=== PATIENT | male | born 1955 | race Caucasian/White ===

== ENCOUNTER 2016-05-13 14:00 | Outpatient (RCR) | payer BC ==
[~2016-05-13 14:00] MED LIST: ACTOS 15MG TAB15 MG PO; B-12 500 MCG PO; CAPOTEN 25MG25 MG PO; CARDIZEM CD 18180 MG PO; CARDIZEM120 MG PO; ENBREL50 MG/ML SC; FLUOXETINE; GABAPENTIN; GAS RELIEF180 MG PO; GLUCOPHAGE; GLUCOPHAGE1000 MG PO; GLUCOSAMINE & C1 CA1 PO; HCTZ; HCTZ 25MG TAB25 MG PO; HUMALOG100 U/ML SC; HYDROCORTISO28.35 GM TP; HYTRIN 1MG C1 MG/CAP PO; INSULIN R (N100 U/ML IV; JANUVIA50 MG PO; LANTIS; LANTUS100 U/ML SC; LOPID 600M600 MG/TAB PO; MONODOX100 PO; NATURAL POTASS595 MG PO; NEURONTIN600 MG/TAB PO; NORCO 325 MG-7.1 TAB PO; NOVALOG; NOVOLOG 100U100 U/M1 SQ; OMEGA-3 FISH1000 MG PO; PRAVACHOL 20MG20 MG PO; PRIL40 PO; PRILOSEC; PROAIR RES117 MCG/Ac IH; PROZAC40 MG PO; THEOPHYLLINE; ULTRAM 50MG TAB50 MG PO; UNIPHYL600 MG PO; VITAMIN D 400400 IU PO; VYVANSE50 MG PO; ZETIA 10MG TAB10 MG PO; ZETIA10 MG PO; ZOFRAN 4MG T4 MG/TAB PO; [UNRECOGNIZED DRUG - OTHER]; [UNRECOGNIZED DRUG - OTHER]
== END 2016-05-22 10:31 | disposition still patient (30) ==
LOC: WSOT 14:00
DX: Z47.89 Encounter for other orthopedic aftercare (principal); M65.332 Trigger finger, left middle finger

== ENCOUNTER → 2016-08-25 | Outpatient (CLI) | payer OTHER | LOC: MHCPAIN 11:58 | DX: G89.29 Other chronic pain (principal); M47.817 Spondylosis without myelopathy or radiculopathy, lumbosacral region; M54.16 Radiculopathy, lumbar region | CPT/HCPCS: G0463 ==

== ENCOUNTER → 2016-09-04 | Outpatient (CLI) | payer OTHER | LOC: MHCPAIN 07:47 | DX: M47.817 Spondylosis without myelopathy or radiculopathy, lumbosacral region (principal) | CPT/HCPCS: A9585; J1100 ==

== ENCOUNTER → 2016-10-03 | Outpatient (CLI) | payer OTHER | LOC: MHCPAIN 09:32 | DX: G89.29 Other chronic pain (principal); M47.817 Spondylosis without myelopathy or radiculopathy, lumbosacral region; M54.16 Radiculopathy, lumbar region | CPT/HCPCS: G0463 ==

== ENCOUNTER → 2016-10-09 | Outpatient (CLI) | payer OTHER | LOC: MHCPAIN 11:40 | DX: M47.27 Other spondylosis with radiculopathy, lumbosacral region (principal); M51.17 Intervertebral disc disorders with radiculopathy, lumbosacral region | CPT/HCPCS: A9585; J1100 ==

== ENCOUNTER → 2016-12-08 | Outpatient (CLI) | payer OTHER | LOC: MHCPAIN 10:34 | DX: G89.29 Other chronic pain (principal); M47.27 Other spondylosis with radiculopathy, lumbosacral region; M53.3 Sacrococcygeal disorders, not elsewhere classified | CPT/HCPCS: G0463 ==

== ENCOUNTER → 2017-03-17 | Outpatient (CLI) | payer OTHER | LOC: COL.RAD 17:32 | DX: K76.0 Fatty (change of) liver, not elsewhere classified (principal); D72.829 Elevated white blood cell count, unspecified ==

== ENCOUNTER 2017-09-09 11:21 | Emergency (ER) | payer OTHER, BC ==
[~2017-09-09] VITALS: Ht 182.9 cm; Wt 118.2 kg
[2017-09-09 11:30] VITALS: BP 138/79; TEMP 98
[2017-09-09 12:40] VITALS: PULSE 88
== END 2017-09-09 12:40 | disposition home or self-care (01) ==
LOC: COL.ER 11:21
DX: S61.211A Laceration without foreign body of left index finger without damage to nail, initial encounter (principal); Z79.84 Long term (current) use of oral hypoglycemic drugs; Z23 Encounter for immunization; Z79.4 Long term (current) use of insulin; W26.0XXA Contact with knife, initial encounter

== ENCOUNTER 2017-09-21 07:15 | Emergency (ER) | payer OTHER, BC ==
[2017-09-21 07:21] VITALS: BP 142/70; PULSE 90; TEMP 98.1
== END 2017-09-21 07:23 | disposition home or self-care (01) ==
LOC: COL.ER 07:15
DX: Z48.02 Encounter for removal of sutures (principal)

== ENCOUNTER 2019-01-01 16:19 | Emergency (ER) | payer OTHER, BC ==
[~2019-01-01] VITALS: Ht 182.9 cm; Wt 122.7 kg
[2019-01-01 16:22] VITALS: BP 143/82; TEMP 97
[2019-01-01 18:53] VITALS: PULSE 84
== END 2019-01-01 18:53 | disposition home or self-care (01) ==
LOC: COL.ER 16:19
DX: S06.0X9A Concussion with loss of consciousness of unspecified duration, initial encounter (principal); S00.93XA Contusion of unspecified part of head, initial encounter; E11.9 Type 2 diabetes mellitus without complications; I10 Essential (primary) hypertension; F32.9 Major depressive disorder, single episode, unspecified; Z79.4 Long term (current) use of insulin; W11.XXXA Fall on and from ladder, initial encounter; Y92.009 Unspecified place in unspecified non-institutional (private) residence as the place of occurrence of the external cause

== ENCOUNTER 2019-01-27 06:20 | Day surgery (SDC) | payer BC ==
[~2019-01-27] VITALS: Ht 182.9 cm; Wt 121.9 kg
[2019-01-27 07:08] VITALS: BP 157/88; PULSE 78; TEMP 97.2
--- NOTE | 2019-01-27 07:11 | NUR ---
TO [facility] AT 0630 CALL LIGHT IN REACH AT BEDSIDE
[2019-01-27] MEDS ORDERED: BASAGLAR K100 UNIT/1 SQ (07:18)
[2019-01-27] MEDS ORDERED: CAPOTEN 50MG50 MG PO (07:18)
[2019-01-27] MEDS ORDERED: VOLTAREN GEL 1%1 TU TP (07:21)
[2019-01-27] MEDS ORDERED: CARDIZEM CD 18180 MG PO (07:22)
[2019-01-27] MEDS ORDERED: ERY-TAB250 MG PO (07:23)
[2019-01-27] MEDS ORDERED: PROZAC 20MG20 MG PO (07:25)
[2019-01-27] MEDS ORDERED: JANUVIA50 MG PO (07:28)
[2019-01-27] MEDS ORDERED: LANTUS100 U/ML SQ (07:31)
[2019-01-27] MEDS ORDERED: K-DUR20 MEQ PO (07:34)
[2019-01-27] MEDS ORDERED: KERALYT TOP (07:37)
[2019-01-27] MEDS ORDERED: CRESTOR 10MG10 MG PO (07:40)
[2019-01-27] MEDS ORDERED: TRIAMCINOLONE A15 GM TP (07:40)
[2019-01-27 08:40] VITALS: BP 147/85; PULSE 82; TEMP 97.3
--- NOTE | 2019-01-27 08:40 | NUR ---
Pt arrived from colonoscopy procedure with Endo RN via cart. Pt ambulated to chair with touch assist from Endo RN and this RN. Pt drowsy but oriented and appropriate. Report received from JAVIER Poole. Reviewed with pt and spouse (at bedside) the goals for today before discharge including drinking and/or eating, feeling awake and comfortable enough for discharge, and reviewing dischage information. Pt and spouse agree. Apple juice brought per pt's reqest. Call light within reach, VSS, and pt denies c/o n/v. Pt appears to have some pallor, however, BP stable and pt denies dizziness at this time. Will continue to monitor and recheck.
[2019-01-27 08:55] VITALS: BP 143/82; PULSE 74
--- NOTE | 2019-01-27 08:55 | NUR ---
Pt successfully drank all of apple juice and requested more as well as pudding. Pt denies and n/v or pain. VSS. Pt still has some pallor in face but mucus membranes are pink and cap refill less than 3 seconds. reports that pt is usually pale at baseline. Pt denies dizziness and is perking up and less drowsy. Apple juice and pudding brought to pt's bedside.
[2019-01-27 09:10] VITALS: BP 147/93; PULSE 74
--- NOTE | 2019-01-27 09:10 | NUR ---
Pt states that he is ready to go home, and he meets criteria for discharge. Reviewed discharge information as well as education packet with pt and spouse. They had no further concerns/questions. VSS
== END 2019-01-27 09:18 | disposition home or self-care (01) ==
LOC: SDCO 06:20
DX: Z12.11 Encounter for screening for malignant neoplasm of colon (principal); E11.9 Type 2 diabetes mellitus without complications; I10 Essential (primary) hypertension; F32.9 Major depressive disorder, single episode, unspecified; M19.90 Unspecified osteoarthritis, unspecified site; F98.8 Other specified behavioral and emotional disorders with onset usually occurring in childhood and adolescence; G47.33 Obstructive sleep apnea (adult) (pediatric); K21.9 Gastro-esophageal reflux disease without esophagitis; J45.909 Unspecified asthma, uncomplicated; Z85.72 Personal history of non-Hodgkin lymphomas; Z85.07 Personal history of malignant neoplasm of pancreas; Z87.891 Personal history of nicotine dependence; Z88.6 Allergy status to analgesic agent; Z91.041 Radiographic dye allergy status; Z88.8 Allergy status to other drugs, medicaments and biological substances; Z90.49 Acquired absence of other specified parts of digestive tract; Z98.52 Vasectomy status
CPT/HCPCS: J2704; J7030

== ENCOUNTER 2021-06-09 09:24 | Emergency (ER) | payer OTHER, MEDICARE ==
[~2021-06-09] VITALS: Ht 182.9 cm; Wt 120.5 kg
[~2021-06-09 09:24] MED LIST changes: +BASAGLAR K100 UNIT/1 SQ; +CAPOTEN 50MG50 MG PO; +CRESTOR 10MG10 MG PO; +ERY-TAB250 MG PO; +K-DUR20 MEQ PO; +KERALYT TOP; +LANTUS100 U/ML SQ; +PROZAC 20MG20 MG PO; +TRIAMCINOLONE A15 GM TP; +VOLTAREN GEL 1%1 TU TP
[2021-06-09] MEDS ORDERED: CEPHALEXIN500 M1 PO (11:07)
[2021-06-09 11:16] VITALS: BP 122/73; PULSE 80; TEMP 98.7
== END 2021-06-09 11:16 | disposition home or self-care (01) ==
LOC: COL.ER 09:24
DX: S09.90XA Unspecified injury of head, initial encounter (principal); S01.111A Laceration without foreign body of right eyelid and periocular area, initial encounter; M25.531 Pain in right wrist; E11.9 Type 2 diabetes mellitus without complications; Z87.891 Personal history of nicotine dependence; Z79.899 Other long term (current) drug therapy; W01.198A Fall on same level from slipping, tripping and stumbling with subsequent striking against other object, initial encounter; Y93.K1 Activity, walking an animal

== ENCOUNTER → 2021-06-16 | Outpatient (CLI) | payer OTHER, MEDICARE ==
[~2021-06-16] MED LIST changes: +CEPHALEXIN500 M1 PO
[2021-06-16 11:35] VITALS: BP 125/74; PULSE 82; TEMP 97.8
== END ==
LOC: COL.ER 11:22
DX: Z48.02 Encounter for removal of sutures (principal)

== ENCOUNTER → 2021-07-02 | Outpatient (CLI) | payer MEDICARE | LOC: COL.VAS 13:57 | DX: I35.0 Nonrheumatic aortic (valve) stenosis (principal); I35.1 Nonrheumatic aortic (valve) insufficiency; I51.7 Cardiomegaly ==

== ENCOUNTER → 2023-04-29 | Outpatient (CLI) | payer OTHER ==
[~2023-04-29] MED LIST changes: +ZOFRAN ODT4 MG PO
== END ==
LOC: MHCPAIN 15:47
DX: M47.896 Other spondylosis, lumbar region (principal); M54.16 Radiculopathy, lumbar region; M48.062 Spinal stenosis, lumbar region with neurogenic claudication; M41.86 Other forms of scoliosis, lumbar region
CPT/HCPCS: G0463

== ENCOUNTER → 2023-05-04 | Outpatient (CLI) | payer OTHER ==
[~2023-05-04] MED LIST changes: +Gadoterate 15 ML VIAL IV ONE; +Iohexol 300 - 10 ML VIAL ONE; +Lidocaine PF 2% (20 MG/ML) 2 ML VIAL ONE
== END ==
LOC: MHCPAIN 14:34
DX: M47.816 Spondylosis without myelopathy or radiculopathy, lumbar region (principal); M48.062 Spinal stenosis, lumbar region with neurogenic claudication
CPT/HCPCS: A9575; J1100; Q9967

== ENCOUNTER → 2023-05-19 | Outpatient (CLI) | payer OTHER ==
[~2023-05-19] MED LIST changes: -Gadoterate 15 ML VIAL IV ONE; -Iohexol 300 - 10 ML VIAL ONE; -Lidocaine PF 2% (20 MG/ML) 2 ML VIAL ONE
== END ==
LOC: MHCPAIN 10:58
DX: M47.896 Other spondylosis, lumbar region (principal); M48.062 Spinal stenosis, lumbar region with neurogenic claudication
CPT/HCPCS: G0463

== ENCOUNTER → 2023-07-06 | Outpatient (CLI) | payer OTHER | LOC: MHCPAIN 13:39 | DX: M48.062 Spinal stenosis, lumbar region with neurogenic claudication (principal); M47.896 Other spondylosis, lumbar region; M41.86 Other forms of scoliosis, lumbar region | CPT/HCPCS: G0463 ==

== ENCOUNTER → 2023-10-06 | Outpatient (CLI) | payer MEDICARE | LOC: COL.VAS 11:50 | DX: I35.0 Nonrheumatic aortic (valve) stenosis (principal); I51.7 Cardiomegaly ==

== ENCOUNTER → 2023-12-01 | Outpatient (CLI) | payer MEDICARE | LOC: MHCPAIN 12:53 | DX: M48.062 Spinal stenosis, lumbar region with neurogenic claudication (principal); M54.16 Radiculopathy, lumbar region; M51.26 Other intervertebral disc displacement, lumbar region; E11.9 Type 2 diabetes mellitus without complications; Z79.4 Long term (current) use of insulin; Z79.84 Long term (current) use of oral hypoglycemic drugs | CPT/HCPCS: G0463 ==

== ENCOUNTER → 2023-12-28 | Outpatient (CLI) | payer MEDICARE ==
[~2023-12-28] MED LIST changes: +Lidocaine PF 1% (10 MG/ML) 5 ML VIAL ONE; +Midazolam 2 MG/2 ML VIAL ONE; +Phenylephrine 10 MG/ML VIAL ONE; +Water For Injection,Sterile 20 ML IV ONE; +ceFAZolin 2 G VIAL IV ONE; +ePHEDrine 50 MG/10 ML VIAL IV ONE; +fentaNYL 50 MCG/ML 2 ML VIAL ONE
== END ==
LOC: MHCPAIN 11-27 10:16
DX: M48.062 Spinal stenosis, lumbar region with neurogenic claudication (principal); Z00.6 Encounter for examination for normal comparison and control in clinical research program
CPT/HCPCS: J0688; J2250; J2371; J3010

== ENCOUNTER → 2024-02-09 | Outpatient (CLI) | payer MEDICARE ==
[~2024-02-09] MED LIST changes: -Lidocaine PF 1% (10 MG/ML) 5 ML VIAL ONE; -Midazolam 2 MG/2 ML VIAL ONE; -Phenylephrine 10 MG/ML VIAL ONE; -Water For Injection,Sterile 20 ML IV ONE; -ceFAZolin 2 G VIAL IV ONE; -ePHEDrine 50 MG/10 ML VIAL IV ONE; -fentaNYL 50 MCG/ML 2 ML VIAL ONE
== END ==
LOC: MHCPAIN 07:54
DX: M41.86 Other forms of scoliosis, lumbar region (principal); M47.816 Spondylosis without myelopathy or radiculopathy, lumbar region; M51.26 Other intervertebral disc displacement, lumbar region; M48.061 Spinal stenosis, lumbar region without neurogenic claudication; E11.9 Type 2 diabetes mellitus without complications; Z79.4 Long term (current) use of insulin
CPT/HCPCS: G0463